=== PATIENT | female | born 1970 | race Native Hawaiian/Other Pacific Islander ===

== ENCOUNTER 2019-12-03 00:27 | Emergency (ER) | payer BC ==
[~2019-12-03] VITALS: Ht 170.2 cm; Wt 102.1 kg
[2019-12-03 01:35] VITALS: BP 128/70
== END 2019-12-03 01:35 | disposition home or self-care (01) ==
LOC: ED 00:27
DX: S61.210A Laceration without foreign body of right index finger without damage to nail, initial encounter (principal); W26.0XXA Contact with knife, initial encounter
CPT/HCPCS: 90471; 90715; 96372; 99283; J0696; J7040

== ENCOUNTER 2020-12-19 10:42 | Outpatient (CLI) | payer BC | END 2020-12-19 22:18 | disposition home or self-care (01) | LOC: RAD 10:42 | PROVIDERS: ATTEND Registered Nurse | DX: Z01.818 Encounter for other preprocedural examination (principal) ==

== ENCOUNTER 2021-02-02 09:01 | Emergency (ER) | payer BC ==
[~2021-02-02] VITALS: Ht 170.2 cm; Wt 102.1 kg
[2021-02-02 09:05] VITALS: TEMP 98.9
[2021-02-02 09:51] LABS: PLATELET COUNT 245 K/uL (152-353)
[2021-02-02 09:56] LABS: POTASSIUM 3.5 mmol/L (3.6-5.2); SODIUM 137 mmol/L (136-145)
[2021-02-02 10:01] LABS: PARTIAL THROMBOPLASTIN TIME 24.6 SECONDS (24.5-33.6)
[2021-02-02 11:13] VITALS: BP 126/74
== END 2021-02-02 11:14 | disposition home or self-care (01) ==
LOC: ED 09:01
PROVIDERS: Hospitalist
DX: R00.2 Palpitations (principal); F41.8 Other specified anxiety disorders
CPT/HCPCS: 36415; 80053; 82550; 83880; 84484; 85027; 85379; 85610; 85730; 93005; 96360; 99284

== ENCOUNTER 2021-05-12 08:53 | Outpatient (CLI) | payer BC | END 2021-05-12 19:21 | disposition home or self-care (01) | LOC: RAD 08:53 → MAMMO 09:30 → RAD 19:21 | PROVIDERS: ATTEND Obstetrics & Gynecology | DX: Z13.820 Encounter for screening for osteoporosis (principal); Z12.31 Encounter for screening mammogram for malignant neoplasm of breast ==

== ENCOUNTER 2022-06-27 16:47 | Outpatient (CLI) | payer BC ==
[2022-06-27 17:23] LABS: PLATELET COUNT 244 K/uL (152-353)
[2022-06-27 17:50] LABS: POTASSIUM 4.2 mmol/L (3.6-5.2)
== END 2022-06-27 21:42 | disposition home or self-care (01) ==
LOC: LABW 16:47
PROVIDERS: ATTEND Nurse Practitioner
DX: E34.9 Endocrine disorder, unspecified (principal); N95.1 Menopausal and female climacteric states; N95.8 Other specified menopausal and perimenopausal disorders; R41.3 Other amnesia; R68.82 Decreased libido; E03.8 Other specified hypothyroidism; E55.9 Vitamin D deficiency, unspecified; D51.9 Vitamin B12 deficiency anemia, unspecified; E51.9 Thiamine deficiency, unspecified; E61.2 Magnesium deficiency; E60 Dietary zinc deficiency; F41.8 Other specified anxiety disorders; G47.00 Insomnia, unspecified; D64.89 Other specified anemias; E66.9 Obesity, unspecified; E78.49 Other hyperlipidemia; R51.9 Headache, unspecified; R73.03 Prediabetes; R53.83 Other fatigue
CPT/HCPCS: 36415; 80053; 80061; 82306; 82607; 82670; 82728; 83001; 83036; 83540; 83550; 83735; 84403; 84443; 84481; 85027

== ENCOUNTER 2022-12-03 10:41 | Outpatient (CLI) | payer BC ==
[2022-12-03 11:09] LABS: PLATELET COUNT 252 K/uL (152-353)
[2022-12-03 11:35] LABS: POTASSIUM 3.9 mmol/L (3.6-5.2)
== END 2022-12-03 20:55 | disposition home or self-care (01) ==
LOC: LABW 10:41
PROVIDERS: ATTEND Internal Medicine
DX: E78.49 Other hyperlipidemia (principal); I10 Essential (primary) hypertension; R73.02 Impaired glucose tolerance (oral); E03.8 Other specified hypothyroidism
CPT/HCPCS: 36415; 80053; 80061; 81002; 83036; 84439; 84443; 85027

== ENCOUNTER 2023-06-25 15:04 | Outpatient (CLI) | payer BC ==
[2023-06-25 16:14] LABS: PLATELET COUNT 253 K/uL (152-353)
== END 2023-06-25 19:54 | disposition home or self-care (01) ==
LOC: LABW 15:04
PROVIDERS: ATTEND Internal Medicine
DX: R73.02 Impaired glucose tolerance (oral) (principal); E03.8 Other specified hypothyroidism; I10 Essential (primary) hypertension
CPT/HCPCS: 36415; 80053; 80061; 81002; 83036; 84439; 84443; 85027